=== PATIENT | male | born 1960 | race Hispanic/Latino ===

== ENCOUNTER 2018-08-29 09:17 | Day surgery (SDC) | payer OTHER ==
[2018-08-27 14:44] VITALS: BMI 27.6
[2018-08-29] MEDS ORDERED: Lidocaine 2% Inj (20ml) ONE (09:36)
[2018-08-29] MEDS ORDERED: Verapamil 2 ML ONE (09:37)
[2018-08-29] MEDS ORDERED: Iohexol 350mgl/ml 50 ML ONE (09:37)
[2018-08-29] MEDS ORDERED: Iodixanol 320 MG/ML 200 ML BOTTLE IV ONE (09:37)
[2018-08-29] MEDS ORDERED: Nitroglycerin 50mg in D5W 50 MG/250 ML BOTTLE IV ONE (09:37)
[2018-08-29] MEDS ORDERED: Midazolam 2 MG/2 ML VIAL ONE (09:49)
[2018-08-29] MEDS ORDERED: Bacitracin 500 Units/gm Oint Foilpak UD TOP ONE (10:59)
[2018-08-29] MEDS ORDERED: Sodium Chloride 0.9% 1,000 ML IV SCH (11:00)
[2018-08-29] MEDS ORDERED: Bacitracin 500 Units/gm Oint Foilpak UD ONE (13:07)
[2018-08-29 14:25] VITALS: BP 105/76; PULSE 71; RESP 13; O2SAT 97
[2018-08-29 14:27] VITALS: TEMP 98.7
--- NOTE | 2018-08-29 22:58 | CARD ---
APPROVED REPORT Date of service: 08/29/2018 EKG Measurement Heart [id number] <Conclusion> Sinus bradycardia Otherwise normal ECG
--- NOTE | 2018-08-30 13:34 | CARDCATH ---
PROCEDURE DATE: 08/29/2018 PROCEDURE: Percutaneous coronary intervention and drug-eluting stent placement of the left anterior descending coronary artery. CLINICAL INDICATIONS: 1. Status post ST elevation myocardial infarction. 2. Status post left circumflex stent placement. 3. Coronary artery disease. 4. Hypothyroidism. REFERRING PHYSICIAN: Lb Chavez MD PERFORMING PHYSICIAN: Berlin Arenas MD CLINICAL HISTORY: Mr. Luisito Marshall is a 57-year-old gentleman presented to [facility] for acute inferolateral ST elevation myocardial infarction. The patient had successful stent placement of complex coronary artery. The patient today of the left anterior descending coronary artery. DESCRIPTION OF PROCEDURE: After informed consent, the patient was prepped and draped in the usual sterile fashion. A 2% lidocaine was given in the left wrist for local anesthesia. Using micropuncture technique, a 6-English sheath was introduced into the left radial artery. The patient was preloaded with aspirin, Brilinta, and IV heparin. ACT was maintained about 250 throughout the procedure. A 6-English XB 3.0 guide catheter was engaged into left main coronary artery. Contrast injected and left coronary angiogram was done. Prior to stenting, the left circumflex and obtuse marginal branch patent, left main coronary artery is patent. Proximal LAD has 30% stenosis. Mid LAD has long 85 to 90% lesion. Distal LAD and diagonal branches are patent. BMW wire threaded into left anterior descending coronary artery. The patient initially has a RAY-3 flow distal to the lesion. The lesion was predilated using 2.25 x 20 Compliant balloon and stented with 2.5 x 26 Res[facility] [place] drug-eluting stent. Excellent final angiographic results with brisk RAY-3 flow noted. The patient tolerated the procedure well. Post-procedure, Terumo radial band applied to the left wrist with excellent hemostasis. CONCLUSION: Successful drug eluting stent placement of mid left anterior descending coronary artery. Recommend Brilinta 90 b.i.d. for one year. Aspirin and statin for life. The patient currently is bradycardic. Recommend no beta-blockers at this time. The patient will be transferred back to [facility] after three hours. Then patient will follow up with me in two weeks. Berlin Arenas MD
--- NOTE | 2018-08-30 16:56 | CP.PCM.DIS ---
Provider - Provider Attending physician: Hospitalist Service Primary care physician: None Consults: Cardiology Dr. Arenas Time Spent in preparation of Discharge (in minutes): 40 Hospital Course - Hospital Course Hospital Course: Hospitalist Discharge Summary The patient was seen and examined by me for the first time on 08/30/18 at 11:30 AM 57 year old male (PMHx Hypothyroidism) who presented to [facility] ER on 08/27/18 with evidence of STEMI in leads II, III, aVF. A Code Heart was instituted and patient was transferred to [facility] where he underwent PCI with placement of EDWARD to the Left Cx/OM. He was then take to [facility] where he underwent PCI with EDWARD placement in the LAD. He was transferred back to [facility] ICU and monitored. Echocardiogram revealed normal LVSF with normal EF, diastolic dysfunction, and mild mitral/tricuspid regurgitation. On 08/29/18, it was found that he became bradycardic and therefore Betablocker was held. He also experienced lightheadedness and therefore his Losartan was held. He stated that his blood pressure normally runs in the Systolic low 100s. He was deemed stable for discharge by Cardiology for 08/30/18. Please see the medical record for full details. Currently upon Full ROS" NO chest pain NO palpitations NO SOB/Cough/Wheezing NO dysphagia/odynophagia NO abdominal pain NO n/v/d/c NO burning/pain with urination NO headache NO changes in vision NO changes in hearing NO paresthesias Lightheadeness earlier this morning but this has essentially resolved General: AAOx3, NAD, resting comfortably HEENT: NCA, EOMI, PERRLA, NO cervical/supraclavicular/submandibular lymphadenopathy, NO pharyngeal erythema/exudate, NO thyromegaly, Nasal Turbinates are nonerythematous/nonedematous Cardio: NS1 and NS2, NO M/R/G Resp: CTA B/L, NO R/R/W GI: BSx4, Soft, NT, ND, NO HSM, NO guarding/rebound tenderness Ext: Pulses are strong and equal, Capillary Refill is 2 seconds, NO edema Neuro: CN II through XII are grossly intact Skin: NO bruising/hardness palpated in the bilateral inguinal area Assessments: 1). STEMI S/P PCI with EDWARD in the Left Cx/OM and LAD 2). Hx Hypothyroidism The following instructions were explained to patient and copy will need to be printed for him upon discharge by ICU Nurse Stephie (I spoke with her and informed her that copy will need to be provided): 1). You need to have a primary care physician to help coordinate your health care. I recommend Dr. Gilles Paul who is located at [address] [place] [address] [address] [place] [address] Paul's office at [phone] for an appointment to take place in the next 7 to 10 days. 2). Follow up with Cotton Puller Dr. Berlin Arenas on 09/21/18 at 4 PM. Please confirm this appointment by calling his office at [phone]. His office is located at [address] [place] [address] [place] [address]. 3). Please have the following prescriptions filled at your pharmacy on your way home from the hospital and use them as instructed: Aspirin 81 mg, 1 tablet by mouth 1x/day at 8 AM Levothyroxine 50 mcg, 1 tablet by mouth 1x/day at 8 AM Crestor 20 mg, 1 tablet by mouth 1x/day at 8 PM Brillinta 90 mg, 1 tablet by mouth 2x/day at 8 AM and 8 PM 4). If the copay for any of the above medications is to high for you, please have the pharmacist contact me, Dr. Asad Lockhart at [phone] so that I may give alternative prescription. 5). NO heavy exercise until cleared to do so by Cotton Puller Dr. Arenas. 6). Light jogging and walking is allowed. 7). You were only provided with a 30 day prescriptions for your medications. Please make sure that you have obtained a primary care physician before that time so that future prescriptions can be provided to you by the primary care physician. 8). Please take care and be well. Asad Lockhart D.O. Discharge Plan - Follow Up Plan Condition: GOOD Disposition: Trans to Other Acute Care Hosp
== END 2018-08-29 14:24 | disposition short-term general hospital (02) ==
LOC: CATH 09:17 → CCU 11:07 → CATH 14:24
PROVIDERS: ATTEND Internal Medicine Cardiovascular Disease
DX: I21.19 ST elevation (STEMI) myocardial infarction involving other coronary artery of inferior wall (principal); I25.10 Atherosclerotic heart disease of native coronary artery without angina pectoris; E03.9 Hypothyroidism, unspecified; I07.1 Rheumatic tricuspid insufficiency; R00.1 Bradycardia, unspecified
CPT/HCPCS: 85175; 87081; 93005; 99152; 99153; C1725; C1769 ×2; C1874; C1887 ×2; C9600; J1644 ×2; J2250; J3010; J7030; Q9966; Q9967